=== PATIENT | male | born 1955 | race Caucasian/White ===

== ENCOUNTER 2018-06-05 17:22 | Inpatient (IN) | payer OTHER ==
[2018-06-05] MEDS: ETOMIDATE 20 MG/10 ML VIAL. IV (17:26)
[2018-06-05] MEDS: SUCCINYLCHOLINE 200 MG/10 ML VIAL. IV (17:26)
[2018-06-05] MEDS ORDERED: PROPOFOL 50 ML IV (17:31)
[2018-06-05 17:32] LABS: POC GLUCOSE 177 mg/dL (70-99)
[2018-06-05] MEDS ORDERED: SUCCINYLCHOLINE 200 MG/10 ML VIAL. (17:38)
[2018-06-05] MEDS ORDERED: ETOMIDATE 20 MG/10 ML VIAL. IV (17:38)
[2018-06-05] MEDS ORDERED: MIDAZOLAM HCL/PF 2 MG/2 ML VIAL. IV (17:45)
[2018-06-05] MEDS ORDERED: fentaNYL PF VIAL 100 MCG/2 ML VIAL IV ×2 (17:45)
[2018-06-05] MEDS ORDERED: MORPHINE SULFATE 2 MG/ML DISP.SYRIN. IV (17:45)
[2018-06-05] MEDS: PROPOFOL 50 ML IV (17:45)
[2018-06-05 17:46] LABS: AGAP ISTAT 18 mmol/L (6-14); BUN ISTAT 19 mg/dL (8-26); CHLORIDE ISTAT 104 mmol/L (98-110); CREATININE ISTAT 0.9 mg/dL (0.5-1.4); GLUCOSE ISTAT 194 mg/dL (70-99); HEMATOCRIT ISTAT 45 % (37-52); HEMOGLOBIN ISTAT 15.3 g/dL (14-18); ION CA ISTAT 1.01 mmol/L (1.13-1.32); POTASSIUM ISTAT 3.9 mmol/L (3.5-5.0); SODIUM ISTAT 142 mmol/L (135-145); TOT CO2 ISTAT 24 mmol/L (23-32)
[2018-06-05 17:56] LABS: BASO # 0.1 x10^3/uL (0.0-0.2); BASO % 0 % (0-3); EOS # 0.2 x10^3/uL (0.0-0.7); EOS % 1 % (0-3); HEMATOCRIT 46.3 % (39.0-53.0); HEMOGLOBIN 15.4 g/dL (13.0-17.5); LYMPH # 3.3 x10^3/uL (1.0-4.8); LYMPH % 15 % (24-48); MEAN CORPUSCULAR HEMOGLOBIN 31 pg (25-35); MEAN CORPUSCULAR HGB CONC 33 g/dL (31-37); MEAN CORPUSCULAR VOLUME 93 fL (79-100); MONO # 0.8 x10^3/uL (0.0-1.1); MONO % 3 % (0-9); NEUT # 18.4 x10^3uL (1.8-7.7); NEUT % 81 % (31-73); PLATELET COUNT 260 x10^3/uL (140-400); RED CELL DISTRIBUTION WIDTH 14.5 % (11.5-14.5); WHITE BLOOD COUNT 22.7 x10^3/uL (4.0-11.0)
[2018-06-05 18:04] LABS: BASE EXCESS ABG -1 mmol/L (-3-3); HCO3 ABG 24 mmol/L (21-28); PCO2 ABG 42 mmHg (35-46); PH ABG 7.38 (7.35-7.45); PO2 ABG 258 mmHg (65-108); SAT O2 ABG 98 % (92-99)
[2018-06-05 18:07] LABS: FIO2 ABG 100; PARTIAL THROMBOPLASTIN TIME 21 SEC (24-38); PROTHROMBIN TIME PATIENT 12.8 SEC (11.7-14.0)
[2018-06-05 18:09] LABS: ADD MAN DIFF? YES
[2018-06-05 18:22] LABS: BILIRUBIN,URINE NEGATIVE (NEG); CLARITY,URINE CLEAR; COLOR,URINE YELLOW; GLUCOSE,URINE 250 mg/dL (NEG); NITRITE,URINE NEGATIVE (NEG); PH,URINE 6.5; PROTEIN,URINE 100 mg/dL (NEG-TRACE); UROBILINOGEN,URINE 0.2 mg/dL (0.2 mg/dL)
[2018-06-05 18:37] LABS: BACTERIA,URINE FEW /HPF (0-FEW); SQUAMOUS EPITHELIAL CELL,UR MOD /LPF; WBC,URINE >40 /HPF (0-4)
[2018-06-05] MEDS: PROPOFOL 100 ML IV (18:37)
[2018-06-05 18:49] LABS: ANION GAP 12 (6-14); BLOOD UREA NITROGEN 17 mg/dL (8-26); CALCIUM 8.5 mg/dL (8.5-10.1); CARBON DIOXIDE 27 mmol/L (21-32); CHLORIDE 103 mmol/L (98-107); GFR 75.2; GLUCOSE 177 mg/dL (70-99); POTASSIUM 3.1 mmol/L (3.5-5.1); SODIUM 142 mmol/L (136-145)
[2018-06-05 18:55] LABS: ALBUMIN 3.9 g/dL (3.4-5.0); ALK PHOS 72 U/L (46-116); ALT (SGPT) 14 U/L (16-63); AST (SGOT) 18 U/L (15-37); DIRECT BILIRUBIN 0.1 mg/dL (0.0-0.2); LIPASE 88 U/L (73-393); TOTAL BILIRUBIN 0.6 mg/dL (0.2-1.0); TOTAL PROTEIN 7.6 g/dL (6.4-8.2)
[2018-06-05 18:57] LABS: TROPONINI < 0.017 ng/mL (0.000-0.055)
[2018-06-05] MEDS: VANCOMYCIN 1.75 GM in IV NORMAL SALINE 500ML BAG 500 ML IV (19:56)
[2018-06-05] MEDS: PIPERACILLIN/TAZOBACTAM 4.5 GM in IV NORMAL SALINE 100ML 100 ML IV (19:57)
[2018-06-05 21:11] LABS: % BANDS 23 % (0-9); % EOS 1 % (0-5); % LYMPHS 17 % (24-48); % MONOS 5 % (0-10); % SEGS 54 % (35-66); PLT ESTIMATE ADEQUATE (ADEQUATE)
[2018-06-05] MEDS: CHLORHEXIDINE 0.12% 15 ML MOUTHWASH. MM (21:35)
[2018-06-06] MEDS: PROPOFOL 100 ML IV (01:52)
[2018-06-06] MEDS: CHLORHEXIDINE 0.12% 15 ML MOUTHWASH. MM ×2 (08:38→19:51)
[2018-06-06] MEDS: FAMOTIDINE 20 MG/2 ML VIAL IVP ×2 (09:00→19:50)
[2018-06-06] MEDS: POTASSIUM CHLORIDE 10MEQ 100 ML IV ×2 (09:00→10:00)
[2018-06-06] MEDS: MORPHINE SULFATE 4 MG/ML DISP.SYRIN. IV ×6 (11:02→20:17)
[2018-06-06] MEDS ORDERED: MORPHINE SULFATE 2 MG/ML DISP.SYRIN. IV (11:30)
[2018-06-06] MEDS ORDERED: MORPHINE SULFATE 20 MG/ML CONC SOLUTION. SL (15:30)
[2018-06-06] MEDS: LORazepam INTENSOL 2 MG/ML ORAL.CONC SL (15:39)
== END 2018-06-06 22:28 | disposition expired | DRG 208 ==
LOC: 6 SOUTH 06-06 14:34 → ER 17:22 → 1 WEST ICU 18:30
PROC: 5A1935Z Respiratory Ventilation, Less than 24 Consecutive Hours (ICD-10-PCS; principal; 2018-06-05)
PROC: 0BH17EZ Insertion of Endotracheal Airway into Trachea, Via Natural or Artificial Opening (ICD-10-PCS; 2018-06-05)
DX: J96.00 Acute respiratory failure, unspecified whether with hypoxia or hypercapnia (principal); I61.1 Nontraumatic intracerebral hemorrhage in hemisphere, cortical; G93.40 Encephalopathy, unspecified; D72.829 Elevated white blood cell count, unspecified; E78.5 Hyperlipidemia, unspecified; E87.6 Hypokalemia; F32.9 Major depressive disorder, single episode, unspecified; I10 Essential (primary) hypertension; M41.9 Scoliosis, unspecified; Z66 Do not resuscitate; Z82.49 Family history of ischemic heart disease and other diseases of the circulatory system; Z83.3 Family history of diabetes mellitus; Z86.73 Personal history of transient ischemic attack (TIA), and cerebral infarction without residual deficits; Z87.442 Personal history of urinary calculi; Z90.49 Acquired absence of other specified parts of digestive tract; Z80.42 Family history of malignant neoplasm of prostate
CPT/HCPCS: 31500; 36415; 36600; 51702; 70450; 71045; 80047; 80048; 80076; 81001; 82805; 82962; 83690; 84484; 85007; 85025; 85610; 85730; 86850; 86900; 86901; 87040; 87086; 94002; 94003; 96365; 99291-25; J0330; J2270; J2543; J2704; J3370; J7040; J7050